=== PATIENT | male | born 1985 | race Caucasian/White ===

== ENCOUNTER 2017-10-17 12:26 | Emergency (ER) | payer OTHER ==
[~2017-10-17] VITALS: Ht 185.4 cm; Wt 165.6 kg
[2017-10-17] MEDS ORDERED: KEFLEX500 MG PO (14:03)
== END 2017-10-17 14:22 | disposition home or self-care (01) ==
LOC: ED 12:26
DX: S61.311A Laceration without foreign body of left index finger with damage to nail, initial encounter (principal); Z23 Encounter for immunization; W45.8XXA Other foreign body or object entering through skin, initial encounter
CPT/HCPCS: 73140; 90471; 90715; 99283